=== PATIENT | male | born 1955 ===

== ENCOUNTER 2017-05-10 19:07 | Observation (INO) | payer OTHER ==
[~2017-05-10] VITALS: Ht 177.8 cm; Wt 89.2 kg
[2017-05-10] MEDS ORDERED: ASPI81TA28 PO (19:36)
[2017-05-10] MEDS ORDERED: DILT-204 PO (19:36)
[2017-05-10] MEDS ORDERED: CICL80AE PO (19:36)
[2017-05-10] MEDS ORDERED: ALPOPSD OPR (19:36)
[2017-05-10] MEDS ORDERED: TMPOPS15 OPR (19:36)
[2017-05-10] MEDS ORDERED: FLM4 PO (19:36)
[2017-05-10] MEDS ORDERED: LISI20TA3 PO (19:36)
[2017-05-10] MEDS ORDERED: FINA5TAB PO (19:36)
[2017-05-10] MEDS ORDERED: VNTHFA/IN INH (19:36)
[2017-05-10 20:33] LABS: BASO % 0.1 %; BASO ABS # 0.01 K/uL (0-0.2); EOS % 0.1 %; EOS ABS # 0.01 K/uL (0-0.5); HEMATOCRIT 52.2 % (42-52); HEMOGLOBIN 19.4 g/dL (14.0-18.0); IG# 0.04 K/uL (0.00-0.02); LYMPH % 9.5 %; MEAN CELL VOLUME 88.6 fL (80-100); MEAN CORPUSCULAR HEMOGLOBIN 32.9 pg (25-34); MEAN CORPUSCULAR HGB CONC 37.2 g/dl (32-36); MEAN PLATELET VOLUME 11.7 fL (7.4-10.4); MONO % 5.1 %; MONO ABS # 0.64 K/uL (0.11-0.59); NEUT % 84.9 %; NEUT ABS # 10.77 K/uL (1.4-6.5); PLATELET COUNT 198 K/uL (130-400); RED CELL DISTRIBUTION WIDTH CV 12.7 % (11.5-14.5); RED CELL DISTRIBUTION WIDTH SD 40.6 fL (36.4-46.3); WHITE BLOOD COUNT 12.67 K/uL (4.8-10.8)
[2017-05-10 20:38] LABS: ALBUMIN 4.7 gm/dl (3.4-5.0); CALCIUM 10.7 mg/dl (8.5-10.1); CREATININE 2.58 mg/dl (0.60-1.40); TOTAL PROTEIN 9.9 gm/dl (6.4-8.2)
--- NOTE | 2017-05-10 20:51 | DIAGNOSTIC IMAGING REPORT ---
KUB CLINICAL HISTORY: Abdominal distention. Constipation. COMPARISON STUDY: None. FINDINGS: Multiple loops of moderately dilated small bowel are noted. There is a moderate amount of stool within the colon and rectum. Pelvic calcifications favor phleboliths and vascular calcifications. IMPRESSION: 1. Moderate small bowel dilatation which favors a small bowel obstruction. 2. Moderate amount of stool within the colon and rectum. Electronically signed by: Sabino Mcgowan M.D. 05/10/2017 8:50 PM Dictated Date/Time: 05/10/2017 8:46 PM
[2017-05-10] MEDS ORDERED: MoRPHine SULFATE 10 MG/ML CARP/VIAL IV STA (21:20)
[2017-05-10] MEDS ORDERED: ONDANSETRON INJ 2 MG/ML 2 ML VIAL IV STA (21:20)
[2017-05-10] MEDS ORDERED: SODIUM CHLORIDE 0.9% 1000ML 1,000 ML IV STA (21:20)
--- NOTE | 2017-05-10 22:04 | DIAGNOSTIC IMAGING REPORT ---
CT OF THE ABDOMEN AND PELVIS WITHOUT CONTRAST CLINICAL HISTORY: Abdominal pain. Evaluate for small bowel obstruction. COMPARISON STUDY: KUB performed earlier today. TECHNIQUE: Axial images of the abdomen and pelvis were obtained without IV contrast. Images were reviewed in the axial, sagittal, and coronal planes. A dose lowering technique was utilized adhering to the principles of ALARA. FINDINGS: Visualized portions of the lower chest demonstrate large bulla. No pneumatosis, free air or portal venous gas is present. Evaluation of the abdomen and pelvis is suboptimal as unenhanced exam. Unenhanced images of the liver, spleen, adrenal glands, kidneys and pancreas are normal. There is no biliary or pancreatic ductal dilatation. No hydronephrosis is present. No abdominal or pelvic lymphadenopathy is present. The entire small bowel is moderately dilated and fluid-filled. A right inguinal hernia contains the distal ileum. Small bowel feces sign is noted. A small portion of the cecum may slightly extend into the hernia sac as well. This represents the site of obstruction. The appendix is normal. A small amount of ascites is noted within the hernia sac. No significant bowel wall thickening is identified on this unenhanced exam. No suspicious osseous lesions are present. There is moderate atherosclerotic plaque of the abdominal aorta. There is no aneurysmal dilatation. Note is made of left colon diverticulosis without evidence for acute diverticulitis. IMPRESSION: 1. Findings consistent with a moderate to high-grade small bowel obstruction due to a right inguinal hernia which contains a loop of the distal/terminal ileum. A small portion of the cecum may also slightly extend through the abdominal wall defect. Moderate amount of ascites. No pneumatosis, free air or portal venous gas. Surgical consultation is recommended. Findings discussed with Dr. Merritt at time of dictation. 2. Several large bullae within visualized portions of the lungs. Electronically signed by: Sabino Mcgowan M.D. 05/10/2017 10:03 PM Dictated Date/Time: 05/10/2017 9:52 PM
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
[2017-05-10] MEDS ORDERED: PIPERACILLIN/TAZOBACTAM 4.5 GM/100ML D5W IV STA (22:50)
[2017-05-10] MEDS ORDERED: CEFAZOLIN SOD 2000MG/15 ML IV PUSH IV STA (22:53)
[2017-05-11] VITALS (17 sets, daily range): BP systolic 134–169; BP diastolic 66–110; PULSE 62–92; TEMP 36.4–36.8; O2SAT 92–98; Ht 177.8 cm; Wt 89.2 kg
[2017-05-11] MEDS ORDERED: LIDOCAINE HCL 1% 20 ML VIAL ONE (00:02)
[2017-05-11] MEDS ORDERED: BUPIVACAINE 0.5 % 5 MG/1 ML MPF 30ML VIAL ONE (00:03)
[2017-05-11] MEDS ORDERED: BACITRACIN OINT 15 GM TUBE ONE (00:03)
[2017-05-11] MEDS ORDERED: HYDROmorphone INJ 1 MG/ML SYR IV PRN (00:45)
[2017-05-11] MEDS ORDERED: ATROPINE SULFATE 0.1 MG/ML 5ML SYR IV PRN (00:45)
[2017-05-11] MEDS ORDERED: ONDANSETRON INJ 2 MG/ML 2 ML VIAL IV PRN ×2 (00:45→03:15)
[2017-05-11] MEDS ORDERED: EpHEDrine SULFATE INJ 50 MG/ML AMP IV PRN (00:45)
[2017-05-11] MEDS ORDERED: FENTANYL CITRATE INJ 50 MCG/1 ML 2 ML VIAL IV PRN (00:45)
--- NOTE | 2017-05-11 01:00 | History & Physical Bridge Note ---
H&P Re-Evaluation Bridge Note: I have examined the patient, reviewed the History & Physical and in the interval since the performance of the History & Physical I have noted the following changes of clinical significance: No changes noted
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
[2017-05-11] MEDS ORDERED: FENTANYL CITRATE INJ 50 MCG/1 ML 2 ML VIAL ONE ×2 (01:05→02:57)
[2017-05-11] MEDS ORDERED: MIDAZOLAM HCL 1 MG/ML 2ML VIAL ONE (01:05)
[2017-05-11] MEDS ORDERED: PROPOFOL IV EMULSION 10 MG/ML 20 ML VIAL IV ONE (02:27)
[2017-05-11] MEDS ORDERED: ONDANSETRON INJ 2 MG/ML 2 ML VIAL ONE (02:27)
[2017-05-11] MEDS ORDERED: PHENYLEPHRINE HCL INJ 10 MG/ML VIAL ONE (02:27)
[2017-05-11] MEDS ORDERED: SUCCINYLCHOLINE CHLORIDE 20 MG/ML 10 ML VIAL IV ONE (02:27)
[2017-05-11] MEDS ORDERED: EpHEDrine SULFATE 50MG/5ML SYR ONE (02:27)
[2017-05-11] MEDS ORDERED: DEXAMETHASONE SOD INJ 4 MG/ML VIAL ONE (02:27)
[2017-05-11] MEDS ORDERED: NEOSTIGMINE METHYLSULFATE 5 MG/5 ML SYR ONE (02:44)
[2017-05-11] MEDS ORDERED: ROCURONIUM BROMIDE 10 MG/ML 5 ML VIAL IV ONE (02:44)
[2017-05-11] MEDS ORDERED: GLYCOPYRROLATE INJ 0.2 MG/ML VIAL ONE (02:44)
--- NOTE | 2017-05-11 03:11 | [facility] Post Operative Brief Note ---
Immediate Operative Summary Operative Date May 11, 2017. Pre-Operative Diagnosis Incarcerated right inguinal hernia Post-Operative Diagnosis Same as pre-operative Procedure(s) Performed Right Open Incarcerated Inguinal Hernia Repair with Mesh Surgeon Dr. Alejandra Valenzuela Visiting Teacher Surgeon(s) Fred Miles RN; [facility] Estimated Blood Loss 10mL Findings Consistent with Post-Op Diagnosis incarcerated right inguinal hernia Fluids (cc crystalloids) 1400ml Specimens none Drains None Anesthesia Type General Complication(s) none Disposition Accompanied Pt To Recover: yes Disposition: Recovery Room / PACU
[2017-05-11] MEDS ORDERED: OXYCODONE/ACETAMINOPHEN 5-325 TAB PO PRN (03:15)
[2017-05-11] MEDS ORDERED: ACETAMINOPHEN 325 MG TAB PO PRN (03:15)
[2017-05-11] MEDS ORDERED: ALBUTEROL HFA INHALER 8.5 GM INH ONE (03:49)
--- NOTE | 2017-05-11 03:50 | OPERATIVE REPORT ---
DATE OF OPERATION: 05/11/2017 PREOPERATIVE DIAGNOSIS: Incarcerated right inguinal hernia. POSTOPERATIVE DIAGNOSIS: Same. PROCEDURE: Open repair of incarcerated right inguinal hernia with mesh. SURGEON: Alejandra Valenzuela MD. ANESTHESIA: General. ESTIMATED BLOOD LOSS: About 10 mL. IV FLUIDS: 1400 mL. FINDINGS: Incarcerated right inguinal indirect hernia. COMPLICATIONS: None. INDICATIONS FOR THE PROCEDURE: This is a 61-year-old gentleman who presents to the ER with right inguinal pain with bulging and patient had a CT diagnosed with incarcerated right inguinal indirect hernia and patient will be required to do open repair, right inguinal hernia with mesh and possible bowel resection and stomal exploratory laparotomy. I did talk to the patient about the benefit and risk, alternate procedure. I indicated the risks may include but not limited such as bleeding, infection, hernia recurrence, chronic pain, injury to the bowel. The patient understands. He signed informed consent and I answered all questions. DETAILS OF PROCEDURE: We brought the patient to the OR, put the patient in the supine position. The patient received SCD on bilateral legs to prevent DVT. Also, the patient received 2 grams Ancef IV for prophylactic antibiotic. The patient received general anesthesia without difficulty. The abdomen was prepped and draped in routine sterile fashion. After a timeout, I injected local anesthesia on the right inguinal area by using 1% lidocaine mixed with 0.5% Marcaine. Then I made about a 4 cm incision on the right inguinal area and opened the skin and subcutaneous layer external oblique and the patient had an incarcerated hernia. I had to enlarge the hernia neck. The patient has indirect hernia and then we mobilized the hernia sac and then mobilized cord structure, put a Maria Del Carmen on and then the patient had a large hernia sac that we eventually completely reduced. All the contents were pulled back to the abdominal cavity. No signs for ischemic bowel at this moment. Then we reduced the hernia sac back to the abdominal cavity towards the large plug to block the hernia sac that shows 1 mesh 3 x 5 cm long mesh. I used 2-0 Prolene mesh sutured to the inguinal ligament continuous running and then used another 2-0 Prolene suture mesh to conjoined tendon continuous running, 2 sutures meeting together tied the mesh to sit nicely, no tension. Then I used 2-0 Vicryl, closed the external oblique with continuous running. Hemostasis was obtained. Also we identified the nerves to protect the nerve whole time. Then I used 2-0 Vicryl, closed the subcutaneous layer continuous running, closed skin by using 4-0 Vicryl continuous running. Then we put the dressing on. The patient tolerated the procedure well. After the procedure, the patient transferred to recovery room in stable condition. All the instrument, needle and sponge count correct x2 at the end of the case. I attest to the content of the Intraoperative Record and any orders documented therein. Any exceptions are noted below. NORA
--- NOTE | 2017-05-11 03:59 | Anesthesiology Progress Note ---
Anesthesia Post Op Note Date & Time May 11, 2017 at 03:59 Vital Signs Pain Intensity: 0 Vital Signs Past 12 Hours Date Time Temp Pulse Resp B/P (MAP) Pulse Ox O2 Delivery O2 Flow Rate FiO2 05/11/17 03:49 80 20 147/99 96 Nasal Cannula 3 05/11/17 03:39 71 21 129/93 95 Oxymask 3.5 05/11/17 03:29 36.2 81 20 133/92 94 Nasal Cannula 3.5 05/11/17 00:05 88 18 132/101 97 Room Air 05/10/17 22:28 94 18 132/71 97 Room Air 05/10/17 22:04 97 05/10/17 20:58 104 18 157/110 97 Room Air 05/10/17 19:19 105 05/10/17 19:10 36.6 101 16 145/119 96 Room Air Notes Mental Status: alert / awake / arousable, participated in evaluation Pt Amnestic to Procedure: Yes Nausea / Vomiting: adequately controlled Pain: adequately controlled Airway Patency, RR, SpO2: stable & adequate BP & HR: stable & adequate Hydration State: stable & adequate Anesthetic Complications: no major complications apparent
[2017-05-11 04:40] LABS: EOS % 0.3 %; EOS ABS # 0.03 K/uL (0-0.5); HEMATOCRIT 43.8 % (42-52); HEMOGLOBIN 15.8 g/dL (14.0-18.0); IG# 0.03 K/uL (0.00-0.02); LYMPH % 8.3 %; LYMPH ABS # 0.85 K/uL (1.2-3.4); MEAN CELL VOLUME 89.4 fL (80-100); MEAN CORPUSCULAR HEMOGLOBIN 32.2 pg (25-34); MEAN CORPUSCULAR HGB CONC 36.1 g/dl (32-36); MEAN PLATELET VOLUME 10.8 fL (7.4-10.4); MONO % 6.6 %; MONO ABS # 0.68 K/uL (0.11-0.59); NEUT % 84.5 %; NEUT ABS # 8.68 K/uL (1.4-6.5); PLATELET COUNT 154 K/uL (130-400); RED CELL DISTRIBUTION WIDTH CV 12.7 % (11.5-14.5); RED CELL DISTRIBUTION WIDTH SD 41.1 fL (36.4-46.3); WHITE BLOOD COUNT 10.27 K/uL (4.8-10.8)
[2017-05-11] MEDS: D5W AND 1/2NSS + 20MEQ KCL 1,000 ML IV SCH ×2 (04:56→19:17)
[2017-05-11] MEDS: HYDROmorphone INJ 1 MG/ML SYR IV PRN ×4 (05:03→16:12)
[2017-05-11] MEDS ORDERED: IV FLUIDS COMPLETED PRN (05:45)
[2017-05-11] MEDS ORDERED: DILTIAZEM HCL 240 MG CAPCR PO ONE (10:31)
[2017-05-11] MEDS ORDERED: LISINOPRIL 20 MG TAB PO ONE (10:31)
[2017-05-11] MEDS: ALBUTEROL HFA 8 GM INHALER INH SCH ×3 (12:09→22:52)
[2017-05-11] MEDS ORDERED: HydrALAZINE 10 MG TAB PO PRN (12:15)
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
[2017-05-11 12:47] LABS: CALCIUM 8.4 mg/dl (8.5-10.1); CREATININE 2.11 mg/dl (0.60-1.40); POTASSIUM 3.6 mmol/L (3.5-5.1)
[2017-05-11] MEDS: BRIMONIDINE TARTRATE 0.2% 5ML OPR SCH ×2 (13:31→20:42)
[2017-05-11] MEDS ORDERED: BRIMONIDINE TART 0.2% OP SOLN PER DROP CHARGE OPR SCH (14:00)
[2017-05-11] MEDS ORDERED: OXYC-57 PO (14:01)
--- NOTE | 2017-05-11 14:04 | Discharge Instructions ---
Discharge Instructions Date of Service May 11, 2017. Admission Reason for Admission: Incarcerated Inguinal Hernia Discharge Discharge Diagnosis / Problem: same Discharge Goals Goal(s): Decrease discomfort, Improve function Activity Recommendations Activity Limitations: as noted below No heavy lifting over 10 pounds for 4-6 weeks No strenuous activity until cleared by surgeon No submerging incision underwater for 2 weeks (no bathing, swimming, or hot tubs ) No driving while taking narcotic pain medication or until you are pain free . Instructions / Follow-Up Instructions / Follow-Up You may shower in 2 days. Sponge bath in meantime. Try to keep incision clean and dry. Leave steri strips on incision for 7 days and then remove. They may fall off on their own that is okay. Walking and light activity is encouraged You will be given Narcotic pain medication as needed for moderate to severe pain. May take extra strength Tylenol/Ibuprofen as needed for mild pain Follow-up in surgical office in 1-2 weeks, please call office at [phone] to make an appointment Current Hospital Diet Patient's current hospital diet: Clear Liquid Diet Discharge Diet Recommended Diet: Regular Diet Procedures Procedures Performed: Right Open Incarcerated Inguinal Hernia Repair with Mesh Pending Studies Studies pending at discharge: no Medical Emergencies . Who to Call and When: Medical Emergencies: If at any time you feel your situation is an emergency, please call 911 immediately. . Non-Emergent Contact Non-Emergency issues call your: Primary Care Provider, Surgeon Call Non-Emergent contact if: you have a fever, temperature is above 101, your pain is not controlled, your pain is worsening, your pain is unusual for you, wound has increased drainage, wound has increased redness, wound has increased pain . "Provider Documentation" section prepared by Alessandra Park. . VTE Core Measure Inpt VTE Proph given/why not?: SCD's [place] Drug Monitoring Program Search Results: patient reviewed within database, no issues identified
--- NOTE | 2017-05-11 14:11 | Surgery Progress Note ---
Surgery Progress Note Date of Service May 11, 2017. Subjective Post OP Day: POD # 0 s/p right inguinal hernia repair with mesh + feeling well, + pain controlled, + nausea, + vomiting, + diet (clear liquids) , No chest pain, No SOB Objective Vital Signs: Date Time Temp Pulse Resp B/P (MAP) Pulse Ox O2 Delivery O2 Flow Rate FiO2 05/11/17 11:10 98 Room Air 05/11/17 11:03 36.8 68 15 134/66 (88) 97 Room Air 05/11/17 08:00 93 Room Air 05/11/17 08:00 36.6 63 14 169/100 (123) 92 Room Air 05/11/17 06:31 66 15 138/100 (113) 92 05/11/17 06:16 36.6 75 20 135/94 (108) 96 05/11/17 06:01 71 20 152/99 (116) 96 05/11/17 05:46 36.6 72 20 135/100 (112) 96 05/11/17 05:31 79 13 149/96 (113) 95 05/11/17 05:15 92 23 158/110 (126) 93 05/11/17 05:01 36.6 76 24 136/85 (102) 94 05/11/17 04:45 69 18 96 05/11/17 04:30 36.6 79 28 95 05/11/17 04:11 140/100 (113) 05/11/17 04:05 36.6 73 18 140/100 92 Room Air 05/11/17 04:00 36.6 05/11/17 03:59 86 20 139/99 96 Nasal Cannula 2 05/11/17 03:49 80 20 147/99 96 Nasal Cannula 3 05/11/17 03:39 71 21 129/93 95 Oxymask 3.5 05/11/17 03:29 36.2 81 20 133/92 94 Nasal Cannula 3.5 05/11/17 00:05 88 18 132/101 97 Room Air 05/10/17 22:28 94 18 132/71 97 Room Air 05/10/17 22:04 97 05/10/17 20:58 104 18 157/110 97 Room Air 05/10/17 19:19 105 05/10/17 19:10 36.6 101 16 145/119 96 Room Air General Appearance: WD/WN, no apparent distress Head: normocephalic, atraumatic Neck: trachea midline Respiratory/Chest: lungs clear, normal breath sounds, no respiratory distress, no accessory muscle use Cardiovascular: regular rate, rhythm, no murmur Abdomen: non tender, non distended, soft, + pertinent finding (midline laparotomy scar and left mid abdominal scar (previous G tube site)) Incision(s): clean, dry, intact, no erythema, no drainage, findings (steri strips present) Laboratory Results: Results Past 24 Hours Test 05/10/17 19:34 05/10/17 21:00 05/10/17 22:10 05/11/17 04:27 Range/Units White Blood Count 12.67 10.27 4.8-10.8 K/uL Red Blood Count 5.89 4.90 4.7-6.1 M/uL Hemoglobin 19.4 15.8 14.0-18.0 g/dL Hematocrit 52.2 43.8 42-52 % Mean Corpuscular Volume 88.6 89.4 80-100 fL Mean Corpuscular Hemoglobin 32.9 32.2 25-34 pg Mean Corpuscular Hemoglobin Concent 37.2 36.1 32-36 g/dl Platelet Count 198 154 130-400 K/uL Mean Platelet Volume 11.7 10.8 7.4-10.4 fL Neutrophils (%) (Auto) 84.9 84.5 % Lymphocytes (%) (Auto) 9.5 8.3 % Monocytes (%) (Auto) 5.1 6.6 % Eosinophils (%) (Auto) 0.1 0.3 % Basophils (%) (Auto) 0.1 0.0 % Neutrophils # (Auto) 10.77 8.68 1.4-6.5 K/uL Lymphocytes # (Auto) 1.20 0.85 1.2-3.4 K/uL Monocytes # (Auto) 0.64 0.68 0.11-0.59 K/uL Eosinophils # (Auto) 0.01 0.03 0-0.5 K/uL Basophils # (Auto) 0.01 0.00 0-0.2 K/uL RDW Standard Deviation 40.6 41.1 36.4-46.3 fL RDW Coefficient of Variation 12.7 12.7 11.5-14.5 % Immature Granulocyte % (Auto) 0.3 0.3 % Immature Granulocyte # (Auto) 0.04 0.03 0.00-0.02 K/uL Sodium Level 133 138 136-145 mmol/L Potassium Level 4.0 3.6 3.5-5.1 mmol/L Chloride Level 98 104 98-107 mmol/L Carbon Dioxide Level 26 28 21-32 mmol/L Anion Gap 9.0 6.0 3-11 mmol/L Blood Urea Nitrogen 21 25 7-18 mg/dl Creatinine 2.58 2.11 0.60-1.40 mg/dl Est Creatinine Clear Calc Drug Dose 31.8 42.4 ml/min Estimated GFR () 30.2 38.5 Estimated GFR (Non- 26.1 33.3 BUN/Creatinine Ratio 8.0 11.9 10-20 Random Glucose 125 121 70-99 mg/dl Calcium Level 10.7 8.4 8.5-10.1 mg/dl Total Bilirubin 1.6 0.2-1 mg/dl Aspartate Amino Transf (AST/SGOT) 37 15-37 U/L Alanine Aminotransferase (ALT/SGPT) 62 12-78 U/L Alkaline Phosphatase 94 45-117 U/L Total Protein 9.9 6.4-8.2 gm/dl Albumin 4.7 3.4-5.0 gm/dl Globulin 5.2 2.5-4.0 gm/dl Albumin/Globulin Ratio 0.9 0.9-2 Lipase 113 73-393 U/L Chemistry Specimen Hemolysis Urine Color FREYA Urine Appearance CLOUDY CLEAR Urine pH 5.0 4.5-7.5 Urine Specific [place] >= 1.030 1.000-1.030 Urine Protein 3+ NEG Urine Glucose (UA) NEG NEG Urine Ketones 1+ NEG Urine Occult Blood TRACE NEG Urine Nitrite NEG NEG Urine Bilirubin 2+ NEG Urine Urobilinogen NEG NEG Urine Leukocyte Esterase NEG NEG Urine RBC 0-4 0-4 /hpf Urine WBC 1-5 0-5 /hpf Urine Epithelial Cells >30 0-5 /lpf Urine Calcium Oxalate Crystals PRESENT NONE PRSENT Urine Bacteria 1+ NEG Urine Hyaline Casts 10-30 0-5 /lpf Urine Granular Casts 10-20 0 /lpf Lactic Acid Level 1.2 0.4-2.0 mmol/L Microbiology Results 05/11/17 MRSA DNA Surveillance Screen - Final, Complete Specimen Negative for MRSA by DNA Probe 05/10/17 Urine Culture - Preliminary, Resulted NO GROWTH - LESS THAN 1,000 COLONIES/... Assessment & Plan POD # 0 s/p repair of incarcerated right inguinal hernia with mesh -vitals stable - Pain moderate, controlled - + nausea and vomiting after clear liquids Plan: Continue current pain management, recommend oral pain medications with IV only for breakthrough Continue IV fluids for HAILEE, Creatinine improving Continue clear liquids for now, advance as tolerated Encourage ambulation Continue medical management Hopeful discharge tomorrow Dr. Varela covering for the weekend Dr. Valenzuela has seen patient, agrees with above.
[2017-05-11] MEDS: OXYCODONE/ACETAMINOPHEN 5-325 TAB PO PRN (19:20)
[2017-05-11] MEDS ORDERED: TAMSULOSIN HCL 0.4 MG CAP PO SCH (21:00)
[2017-05-11] MEDS ORDERED: FINASTERIDE 5 MG TAB PO SCH (21:00)
[2017-05-12] MEDS: HYDROmorphone INJ 1 MG/ML SYR IV PRN ×3 (00:27→06:16)
[2017-05-12] MEDS: ALBUTEROL HFA 8 GM INHALER INH SCH ×2 (04:30→10:11)
--- NOTE | 2017-05-12 05:40 | Surgery Progress Note ---
Surgery Progress Note Date of Service May 12, 2017. Subjective pt is hungry, eileen liquids able to void Objective Vital Signs: Date Time Temp Pulse Resp B/P (MAP) Pulse Ox O2 Delivery O2 Flow Rate FiO2 05/12/17 00:30 Room Air 05/11/17 23:00 36.4 70 17 162/91 (114) 93 Room Air 05/11/17 16:30 94 Room Air 05/11/17 14:48 36.6 62 16 146/87 (106) 94 Room Air 05/11/17 11:10 98 Room Air 05/11/17 11:03 36.8 68 15 134/66 (88) 97 Room Air 05/11/17 08:00 93 Room Air 05/11/17 08:00 36.6 63 14 169/100 (123) 92 Room Air 05/11/17 06:31 66 15 138/100 (113) 92 05/11/17 06:16 36.6 75 20 135/94 (108) 96 05/11/17 06:01 71 20 152/99 (116) 96 05/11/17 05:46 36.6 72 20 135/100 (112) 96 General Appearance: no apparent distress Respiratory/Chest: no respiratory distress Abdomen: soft Incision(s): dry, intact Laboratory Results: Results Past 24 Hours Test 05/12/17 04:44 Range/Units Assessment & Plan 05/12/17- s/p Rt inguinal hernia repair- will adv to regular diet- d/c later today if tolerates diet.
[2017-05-12] MEDS: OXYCODONE/ACETAMINOPHEN 5-325 TAB PO PRN ×2 (06:23→13:31)
[2017-05-12] MEDS: BRIMONIDINE TARTRATE 0.2% 5ML OPR SCH ×2 (07:13→14:00)
[2017-05-12 07:17] LABS: HEMATOCRIT 39.7 % (42-52); HEMOGLOBIN 13.9 g/dL (14.0-18.0); MEAN CELL VOLUME 91.5 fL (80-100); MEAN PLATELET VOLUME 10.8 fL (7.4-10.4); PLATELET COUNT 138 K/uL (130-400); RED CELL DISTRIBUTION WIDTH SD 43.3 fL (36.4-46.3); WHITE BLOOD COUNT 6.26 K/uL (4.8-10.8)
[2017-05-12 07:49] LABS: CALCIUM 8.3 mg/dl (8.5-10.1); CREATININE 1.32 mg/dl (0.60-1.40); POTASSIUM 3.6 mmol/L (3.5-5.1)
[2017-05-12 07:50] VITALS: BP 157/93; PULSE 66; TEMP 36.5; O2SAT 94
[2017-05-12] MEDS ORDERED: TIMOLOL MALEATE 0.5% OP SOLN 5 ML BTL OPR SCH (09:00)
[2017-05-12] MEDS ORDERED: LISINOPRIL 20 MG TAB PO SCH (09:00)
[2017-05-12] MEDS ORDERED: DILTIAZEM HCL 240 MG CAPCR PO SCH (09:00)
[2017-05-12 12:50] VITALS: BP 157/93; PULSE 66; TEMP 36.5; O2SAT 94
--- NOTE | 2017-05-12 13:59 | Progress Note ---
Internal Med Progress Note Date of Service: May 12, 2017. Provider Documentation: SUBJECTIVE: Seen and examined at bedside Doing well Has nausea No BM yet Denies any chest pain, SOB OBJECTIVE: Vital Signs-as noted below General Appearance:Moderately built and nourished, no apparent distress Head: normocephalic, Atraumatic Eyes: normal inspection, EOMI, PERRL +Right Eye blindness Neck: supple, Trachea midline Respiratory/Chest: Normal breath sounds, CTA Cardiovascular: S1, S2, No murmur Abdomen/GI:Soft, Non tender, Bowel sounds present, +Surgical site in bandage Extremities/Musculoskelatal:normal inspection, no edema Neurologic/Psych:AAOX3, grossly no focal neurological deficits Skin:normal color,warm, Well healed surgical scar on abdomen from pervious G tube Lab data as noted below. ASSESSMENT & PLAN: S/P Right Open Incarcerated Inguinal hernia repair: POD # 1 Pain control Diet per surgery Monitor for Post Op anemia HAILEE: Unknown Cr levels Cr levels normalized IV fluids Hold lisinopril for now Avoid Nephrotoxic agents/NSAIDs HTN: BP better Continue Cardizem Hydralazine PRN BPH: Continue tamsulosin, finasteride Tobacco use disorder: Denies COPD diagnosis but has inhalers Continue inhalers DVT Px: per primary Vital Signs: Date Time Temp Pulse Resp B/P (MAP) Pulse Ox O2 Delivery O2 Flow Rate FiO2 05/12/17 12:50 36.5 66 16 94 Room Air 05/12/17 07:50 36.5 66 16 157/93 (114) 94 Room Air 05/12/17 07:15 Room Air 05/12/17 00:30 Room Air 05/11/17 23:00 36.4 70 17 162/91 (114) 93 Room Air 05/11/17 16:30 94 Room Air 05/11/17 14:48 36.6 62 16 146/87 (106) 94 Room Air Lab Results: Results Past 24 Hours Test 05/12/17 06:46 Range/Units White Blood Count 6.26 4.8-10.8 K/uL Red Blood Count 4.34 4.7-6.1 M/uL Hemoglobin 13.9 14.0-18.0 g/dL Hematocrit 39.7 42-52 % Mean Corpuscular Volume 91.5 80-100 fL Mean Corpuscular Hemoglobin 32.0 25-34 pg Mean Corpuscular Hemoglobin Concent 35.0 32-36 g/dl RDW Standard Deviation 43.3 36.4-46.3 fL RDW Coefficient of Variation 13.0 11.5-14.5 % Platelet Count 138 130-400 K/uL Mean Platelet Volume 10.8 7.4-10.4 fL Sodium Level 135 136-145 mmol/L Potassium Level 3.6 3.5-5.1 mmol/L Chloride Level 101 98-107 mmol/L Carbon Dioxide Level 31 21-32 mmol/L Anion Gap 3.0 3-11 mmol/L Blood Urea Nitrogen 16 7-18 mg/dl Creatinine 1.32 0.60-1.40 mg/dl Est Creatinine Clear Calc Drug Dose 67.7 ml/min Estimated GFR () 68.0 Estimated GFR (Non- 58.6 BUN/Creatinine Ratio 12.5 10-20 Random Glucose 94 70-99 mg/dl Calcium Level 8.3 8.5-10.1 mg/dl
--- NOTE | 2017-05-14 14:59 | Discharge Summary ---
Discharge Summary Dates Admission Date / Time: May 11, 2017 at 03:15 Discharge Date: May 12, 2017 Dispostion / Condition Discharge Disposition: Home Condition at Discharge: Good Principal Diagnosis (1) Incarcerated right inguinal hernia (2) Small bowel obstruction (3) HAILEE (acute kidney injury) (4) HTN (hypertension) Problem List (1) HTN (hypertension) (2) BPH (benign prostatic hyperplasia) (3) History of hepatitis C (4) Blindness of right eye Consultations / Procedures Consultations: Hospitalist Procedures: Right inguinal hernia repair with mesh Pending Studies / Follow-Up None Medication Reconciliation New Medications: Oxycodone/Acetaminophen 5MG/325MG (Percocet 5MG/325MG) Tab 1 TABLET PO Q4H PRN for Pain, #18 TAB Continued Medications: Albuterol Hfa (Ventolin Hfa) 200 Puffs/13911 Mcg Aers 2-4 PUFFS INH Q6H, #1 INHALER Aspirin (Aspirin Ec) 81 Mg Tab 81 MG PO DAILY Brimonidine Tartrate (Brimonidine Tartrate) 0.2 % Meggan 1 DROP OPR TID Ciclesonide (Alvesco) 80 Mcg/Act Aer 1 PUFF PO BID Diltiazem HCl (Diltiazem Cd) 240 Mg Capcr 240 MG PO DAILY Finasteride (Proscar) 5 Mg Tab 5 MG PO HS, TAB Lisinopril (Prinivil) 20 Mg Tab 20 MG PO DAILY, TAB Tamsulosin HCl (Tamsulosin HCl) 0.4 Mg Cap 0.8 MG PO HS Timolol Maleate (Timolol 0.5% Oph Soln 15 Ml) 15 Ml Soln 1 DROP OPR DAILY Admission HPI Per the Admitting provider: pt is a 61 year old male who presents to ER with 2 days history abdominal pain, pt also has right inguinal hernia with bulging and tenderness, the hernia is incarcerated, it is not reducible, pt denies nausea, no vomiting, no fever, last BM 3 days ago, Hospital Course (1) Incarcerated right inguinal hernia Patient was taken to operating room for open repair of right inguinal hernia with mesh. Patient was found to have small bowel in the hernia which was reducible and viable. Did not require bowel resection. Tolerated procedure well without difficulty. Was then transferred to surgical icu and then to medical/surgical floor for post operative care. Diet was advanced to clear liquids, IV fluids, PO pain medication with breakthrough IV as needed, IV Zofran as needed for nausea, activity as tolerated, SCDs. Patient had some high blood pressure overnight and medicine was consulted to follow patient post operatively. He also had HAILEE with creatinine elevated at 2.58 on admission . Patient was seen on POD#0 and was doing well other than some nausea and vomiting (small amounts) after clear liquids. Pain controlled with oral pain medication. Urine still dark per patient. Afebrile overnight. No other concerns. Diet was kept at clears due to nausea and vomiting and advised to ambulate and sit up in the chair. Patient's diet was advanced to full liquids evening of POD # 0 and tolerated well. Patient was [facility] on POD # 1 in stable condition. (2) Small bowel obstruction Please see above. Secondary to incarcerated right inguinal hernia. (3) HAILEE (acute kidney injury) Per Medicine recommendations: 02/02/18 Creatinine level improving 2.11 Continue IV fluids 02/03/18 HAILEE: Unknown Cr levels Cr levels normalized IV fluids Hold lisinopril for now Avoid Nephrotoxic agents/NSAIDs (4) HTN (hypertension) Per Medicine recommendations: 05/11/18 HTN: -Elevated after surgery 2/2 pain -Normotensive now after pain medication -Resume home dose diltiazem -Hold lisinopril in setting of HAILEE -Added PRN hydralazine for SBP >170 //18 HTN: BP better Continue Cardizem Hydralazine PRN Discharge Instructions as given to patient Copies To Primary Care Provider: Isak LOVELL.
== END 2017-05-12 15:30 | disposition home or self-care (01) ==
LOC: EDBD 19:07 → C.EDC 19:09 → C.MSICU 05-11 03:15 → C.MSN 05-11 10:01 → EDBEDREQ 05-11 10:21 → ENRESERV 05-11 10:24
PROVIDERS: ADMIT Surgery; ATTEND Surgery
DX: K40.30 Unilateral inguinal hernia, with obstruction, without gangrene, not specified as recurrent (principal); R10.9 Unspecified abdominal pain; F17.200 Nicotine dependence, unspecified, uncomplicated; Z79.82 Long term (current) use of aspirin; I10 Essential (primary) hypertension; J44.9 Chronic obstructive pulmonary disease, unspecified; F41.9 Anxiety disorder, unspecified; F31.9 Bipolar disorder, unspecified; N40.0 Benign prostatic hyperplasia without lower urinary tract symptoms